=== PATIENT | female | born 1970 | race Caucasian/White ===

== ENCOUNTER 2018-08-19 11:24 | Emergency (ER) | payer OTHER, SELFPAY ==
--- NOTE | 2018-08-19 12:37 | RAD REPORT ---
EXAM DESCRIPTION: CT - Head Brain Wo Cont - 08/19/2018 12:27 pm CLINICAL HISTORY: NUMBNESS COMPARISON: No comparisons TECHNIQUE: All CT scans are performed using dose optimization technique as appropriate and may inclu de automated exposure control or mA/KV adjustment according to patient size. FINDINGS: No intracranial hemorrhage, hydrocephalus or extra-axial fluid collection.No areas of brai n edema or evidence of midline shift. Mild mucoperiosteal thickening affects the right anterior ethmoid air cells. The paranasal sinuses an d mastoids are clear. The calvarium is intact. IMPRESSION: No acute intracranial abnormality.
--- NOTE | 2018-08-19 13:02 | EDPHYS ---
Physician Documentation [facility] Name: Ladi Matta Age: 47 yrs Sex: Female : 1970 Arrival Date: 08/19/2018 Time: 11:29 Bed 20 Private MD: None, None ED Physician Forrest Hendrickson HPI: 08/19 11:54 This 47 yrs old Female presents to ER via Ambulatory with complaints of rn Numbness Of Arm. 11:54 The patient or guardian complains of tingling. The complaints affect the entire arm. rn Onset: The symptoms/episode began/occurred 1 week(s) ago. Modifying factors: The symptoms are alleviated by nothing. the symptoms are aggravated by nothing. Severity of symptoms: At their worst the symptoms were mild, in the emergency department the symptoms have improved. The patient has not experienced similar symptoms in the past. Reports 1 week of intermittent LUE tingling/numbness, nothing makes it worse or better, no fever, no trauma, no chest pain/sob, no abd pain. . 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 - Social history:: Smoking status: Patient/guardian denies using tobacco. - Ebola Screening: : No symptoms or risks identified at this time. - Family history:: not pertinent. - Hospitalizations: : No recent hospitalization is reported. ROS: 11:54 Constitutional: Negative for fever, chills, and weight loss, Eyes: Negative for injury, rn pain, redness, and discharge, Neck: Negative for injury, pain, and swelling, Cardiovascular: Negative for chest pain, palpitations, and edema, Respiratory: Negative for shortness of breath, cough, wheezing, and pleuritic chest pain, Abdomen/GI: Negative for abdominal pain, nausea, vomiting, diarrhea, and constipation, MS/Extremity: Negative for injury and deformity, Skin: Negative for injury, rash, and discoloration, Neuro: Negative for headache, weakness, and seizure. Exam: 11:54 Constitutional: This is a well developed, well nourished patient who is awake, alert, rn appears anxious Head/Face: Normocephalic, atraumatic. Eyes: Pupils equal round and reactive to light, extra-ocular motions intact. Neck: Trachea midline, no thyromegaly or masses palpated, and no cervical lymphadenopathy. Supple, full range of motion without nuchal rigidity, or vertebral point tenderness. No Meningismus. Cardiovascular: Regular rate and rhythm with a normal S1 and S2. No gallops, murmurs, or rubs. Normal PMI, no JVD. No pulse deficits. Respiratory: Lungs have equal breath sounds bilaterally, clear to auscultation and percussion. No rales, rhonchi or wheezes noted. No increased work of breathing, no retractions or nasal flaring. Abdomen/GI: soft, non-tender MS/ Extremity: Pulses equal, no cyanosis. Neurovascular intact. Full, normal range of motion. Equal circumference. Neuro: Awake and alert, GCS 15, oriented to person, place, time, and situation. Cranial nerves II-XII grossly intact. Motor strength 5/5 in all extremities. + decreased sensation to touch LUE, but present. Cerebellar exam normal. Normal gait. Vital Signs: 11:41 BP 139 / 97; Pulse 84; Resp 16 S; Temp 98.0(TE); Pulse Ox 97% on R/A; Weight 83.91 kg aa5 (R); Height 5 ft. 7 in. (170.18 cm) (R); Pain 0/10; 13:10 BP 137 / 91; Pulse 81; Resp 16; Pulse Ox 99% on R/A; aj 11:41 Body Mass Index 28.97 (83.91 kg, 170.18 cm) aa5 MDM: 11:43 Patient medically screened. rn 12:58 Differential diagnosis: radiculopathy, anxiety, referred symptoms. Data reviewed: vital rn signs, nurses notes, radiologic studies, CT scan, and as a result, I will discharge patient. Counseling: I had a detailed discussion with the patient and/or guardian regarding: the historical points, exam findings, and any diagnostic results supporting the discharge/admit diagnosis, radiology results, the need for outpatient follow up, to return to the emergency department if symptoms worsen or persist or if there are any questions or concerns that arise at home. Special discussion: I discussed with the patient/guardian in detail that at this point there is no indication for admission to the hospital. It is understood, however, that if the symptoms persist or worsen the patient needs to return immediately for re-evaluation. Based on the history and exam findings, there is no indication for further emergent testing or inpatient evaluation. I discussed with the patient/guardian the need to see the primary care provider for further evaluation of the symptoms. ED course: CT head negative, ECG without ischemia, will dc home as most likely radiculopathy given intermittent unilateral symptoms to isolated extremity. . 08/19 11:54 Order name: CT Head Brain wo Cont; Complete Time: 12:39 rn 08/19 11:54 Order name: EKG; Complete Time: 11:54 rn 08/19 11:54 Order name: EKG - Nurse/Tech; Complete Time: 13:09 rn Administered Medications: No medications were administered Disposition: 08/19/18 13:01 Discharged to Home. Impression: Paresthesia of skin, Radiculopathy. - Condition is Stable. - Discharge Instructions: Cervical Radiculopathy, Paresthesia, Peripheral Neuropathy. - Medication Reconciliation Form, Thank You Letter, Antibiotic Education, Prescription Opioid Use form. - Follow up: Private Physician; When: As needed; Reason: Recheck today's complaints, Re-evaluation by your physician. - Problem is new. - Symptoms have improved. Signatures: Dispatcher [employer] Ibis Santo RN Forrest Paula MD MD rn Calderon, Audri, RN RN aa5 Corrections: (The following items were deleted from the chart) 13:12 13:01 08/19/2018 13:01 Discharged to Home. Impression: Paresthesia of skin; aj Radiculopathy. Condition is Stable. Forms are Medication Reconciliation Form, Thank You Letter, Antibiotic Education, Prescription Opioid Use. Follow up: Private Physician; When: As needed; Reason: Recheck today's complaints, Re-evaluation by your physician. Problem is new. Symptoms have improved. rn
--- NOTE | 2018-08-19 13:02 | ER ---
Nurse's Notes [facility] Name: Ladi Matta Age: 47 yrs Sex: Female : 1970 Arrival Date: 08/19/2018 Time: 11:29 Bed 20 Private MD: None, None Diagnosis: Paresthesia of skin;Radiculopathy Presentation: 08/19 11:39 Presenting complaint: Patient states: intermittent left arm numbness and tingling that aa5 began 1 week ago. Pt states "over the last 6 or 7 months I get a pain between my shoulder blades every once in a while". Transition of care: patient was not received from another setting of care. Onset of symptoms was July 2018. Risk Assessment: Do you want to hurt yourself or someone else? Patient reports no desire to harm self or others. Initial Sepsis Screen: Does the patient meet any 2 criteria? No. Patient's initial sepsis screen is negative. Does the patient have a suspected source of infection? No. Patient's initial sepsis screen is negative. Care prior to arrival: None. 11:39 Method Of Arrival: Ambulatory aa5 11:39 Acuity: IRAM 3 aa5 [employer]CHER [employer]: 11:41 LMP 07/21/2018 aa5 Historical: - Allergies: 11:42 No Known Allergies; aa5 - PMHx: 11:42 None; aa5 - PSHx: 11:42 Knee surgery; aa5 - Immunization history:: Adult Immunizations unknown. - Social history:: Smoking status: Patient/guardian denies using tobacco. - Ebola Screening: : No symptoms or risks identified at this time. - Family history:: not pertinent. - Hospitalizations: : No recent hospitalization is reported. Screenin:57 Abuse screen: Denies threats or abuse. Denies injuries from another. Nutritional aj screening: No deficits noted. Tuberculosis screening: No symptoms or risk factors identified. Fall Risk None identified. Assessment: 11:57 General: Appears in no apparent distress. comfortable, Behavior is calm, cooperative, aj appropriate for age. Pain: Denies pain. Neuro: Level of Consciousness is awake, alert, obeys commands, Oriented to person, place, time, situation, Appropriate for age Firmware Manager are equal bilaterally Moves all extremities. Full function Gait is steady, Speech is normal, Facial symmetry appears normal, Pupils are PERRLA, Numbness in left bicep, left antecubital area, dorsal aspect of left forearm, left tricep, left elbow and palmar aspect of left forearm. Respiratory: Airway is patent Respiratory effort is even, unlabored, Respiratory pattern is regular, symmetrical. Derm: Skin is intact, is healthy with good turgor, Skin is pink, warm \\T\\ dry. normal. 13:10 Reassessment: Patient appears in no apparent distress at this time. No changes from aj previously documented assessment. Patient and/or family updated on plan of care and expected duration. Pain level reassessed. Patient is alert, oriented x 3, equal unlabored respirations, skin warm/dry/pink. Patient denies pain at this time. Vital Signs: 11:41 BP 139 / 97; Pulse 84; Resp 16 S; Temp 98.0(TE); Pulse Ox 97% on R/A; Weight 83.91 kg aa5 (R); Height 5 ft. 7 in. (170.18 cm) (R); Pain 0/10; 13:10 BP 137 / 91; Pulse 81; Resp 16; Pulse Ox 99% on R/A; aj 11:41 Body Mass Index 28.97 (83.91 kg, 170.18 cm) aa5 ED Course: 11:29 Patient arrived in ED. mr 11:29 None, None is Private Physician. mr 11:40 Triage completed. aa5 11:40 Forrest Hendrickson MD is Attending Physician. rn 11:40 Arm band placed on. aa5 11:56 Ibis Nolan, RN is Primary Nurse. aj 11:57 Patient has correct armband on for positive identification. aj 11:57 No provider procedures requiring assistance completed. aj 12:15 CT completed. Patient tolerated procedure well. Patient moved to CT via wheelchair. jg6 12:27 CT Head Brain wo Cont In Process Unspecified. EDMS 13:08 EKG done, by fresh foods technician. reviewed by Forrest Hendrickson MD. at1 13:10 Patient did not have IV access during this emergency room visit. aj Administered Medications: No medications were administered Outcome: 13:01 Discharge ordered by . rn 13:10 Discharged to home ambulatory. aj 13:10 Condition: good 13:10 Discharge instructions given to patient, Instructed on discharge instructions, follow up and referral plans. Demonstrated understanding of instructions, follow-up care. 13:12 Patient left the ED. aj Signatures: Dispatcher [employer] EDIbis Carter RN RN aj Rhea Estrada mr Forrest Hendrickson MD MD rn Calderon, Audri, RN RN aa5 Ibis Reid, gear tester EKG Tat1 [email or web address] [id number] Corrections: (The following items were deleted from the chart) 11:41 11:39 Presenting complaint: Patient states: intermittent left arm numbness and tingling aa5 that began 1 week ago. aa5 11:43 11:41 BP 139 / 97; Pulse 84bpm; Resp 16bpm; Spontaneous; Pulse Ox 97% RA; Temp 98.0F aa5 Temporal; aa5
--- NOTE | 2018-08-19 16:46 | EKG ---
Test Date: 2018-08-19 Test Time: 12:57:30 Building Repair Maintenance Supervisor: KYLEE MEASUREMENT RESULTS: Intervals: Rate: 62 ME: 144 QRSD: 88 QT: 414 QTc: 420 [place]: P: 72 ME: 144 QRS: 8 T: 40 INTERPRETIVE STATEMENTS: Normal sinus rhythm Cannot rule out Inferior infarct, age undetermined Abnormal ECG No previous ECG available for comparison Electronically Signed On 08-19-18 16:44:29 CDT by Flo Sommers
== END 2018-08-19 13:12 | disposition home or self-care (01) ==
LOC: ER 11:24
DX: R20.2 Paresthesia of skin (principal); M54.12 Radiculopathy, cervical region
CPT/HCPCS: 70450; 93005; 99284

== ENCOUNTER 2023-05-29 13:22 | Emergency (ER) | payer SELFPAY ==
--- OUTSIDE RECORDS SUMMARY | 2023-05-29 13:27 | XMS REPORT | Continuity of Care Document ---
:1970 Author Organization [facility] t Address [address] [facility] [place] [address] Care Team Providers Name Role Phone BEBO AQUINO Primary Care Physician Unavailable BALBINA CARVER Attending Clinician Unavailable Blu Richardson NP Attending Clinician Wen WHBalbina ALVARADO Attending Clinician [phone] Leif Valle Attending Clinician Unavailable LEIF GRAYSON Attending Clinician Unavailable PAULY DEL RIO Attending Clinician Unavailable Doctor Unassigned, [place] Attending Clinician Unavailable BEBO AQUINO Attending Clinician Unavailable Wesley Attending Clinician Unavailable FRANK MARTINEZ Attending Clinician Unavailable Pauly Del Rio CNM Attending Clinician LAB90 Attending Clinician Unavailable Pcp, Patient Does Not Have A Attending Clinician [phone] BLU RICHARDSON Attending Clinician Unavailable Wesley Admitting Clinician Unavailable Payers Payer Name Policy Type Policy Number Effective Date Expiration Date S ource Problems Condition Condition Condition Status Onset Resolution Last Treating Co mments Source Name Details Category Date Date Treatment Clinician Date Encounter Encounter Disease Active Uni vers for for 06-18 [place] [facility] Branch malignant malignant neoplasm neoplasm of breast of breast Tobacco Tobacco Disease Active Univers use use 06-18 ity of disorder disorder 00:00: [address] Branch Screen for Screen for Disease Active U nivers STD STD 3-03 it[place] of (sexually (sexually [place] transmitte transmitte 00 Me dical d disease) d disease) Br anch Mammogram Mammogram Disease Active Overview: Univers abnormal- abnormal- 12-12 Formattin i ty of left left 00:00: g of this [place] 00 note Medical might be Branch different from the original. 08/2015, Spot compressi on ultrasoun d recommend ed. Essential Essential Disease Active 2014-11 Uni vers hypertensi hypertensi [place] of [place] benign [place] Contracept Contracept Disease Active 2014-11 U srinivasan jean jean ity of management management [place] Cervical Cervical Disease Active 2014-11 Overview: Un juni high risk high risk Formattin i ty of human human 00:00: g of this [place] papillomav papillomav 00 note Me dical irus (HPV) irus (HPV) might be Branch DNA test DNA test different positive positive from the original. Pap negative; cotesting at 1 year (06/2016) Overweight Overweight Disease Active Overview : Univers 8-18 Formattin ity of 00:00: g of this [place] 00 note Medical might be Branch different from the original. 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 ICD10 Diagnosis Term Cle[employer] Utility No known No known Disease Kelse y active active Seybold problems problems - Externa l Allergies, Adverse Reactions, Alerts Allergy Allergy Status Severity Reaction(s) Onset Inactive Treating Comm ents Source Name Type Date Date Clinician NO KNOWN Drug Active Univers ALLERGIE Class ity of S [facility] Social History Social Habit Start Date Stop Date Quantity Comments Source History of tobacco Vivi Seybold - use External History [facility] University o f Alcohol Frequency [place] [facility] History [facility] University o f Alcohol Std Drinks [place] [facility] History [facility] Union o f Alcohol Binge [place] [facility] Gender identity Universit y of [facility] Sexual orientation Univer sity of [facility] Exposure to 2023-01-11 2023-01-21 Not sure [facility] SARS-CoV-2 (event) 00:00:00 13:02:00 [facility] Alcohol intake 2022-09-25 2022-09-25 Lifetime Vivi Khan bold - 00:00:00 00:00:00 non-drinker External (finding) Tobacco use and 2022-08-28 2022-08-28 Smokeless tobacco Ke lsey Seybold - exposure 00:00:00 00:00:00 non-user External History of Social 2022-08-27 2022-08-27 Univers ity of function 00:00:00 00:00:00 [facility] Cigarettes smoked 2022-05-14 2022-05-14 Univers ity of current (pack per 00:00:00 00:00:00 [facility] ) - Reported [place] Cigarette 2022-05-14 2022-05-14 University of pack-years 00:00:00 00:00:00 [facility] Alcohol Comment 2015-07-03 2015-07-03 occasional use Unive rsity of 00:00:00 00:00:00 [facility] Sex Assigned At [birth year] Vivi villalpandoold - 00:00:00 00:00:00 External Smoking Status Start Date Stop Date Source Smokes tobacco daily 2022-08-28 00:00:00 Vivi Banegas - External Ex-smoker 2022-05-14 00:00:00 2022-05-14 00:00:00 Universi ty of [facility] Medications Ordered Filled Start Stop Current Ordering Indication Dosage Frequency Signature Comments Components Source Medication Medication Date Date Medication? Clinician (SIG) Name Name metroNIDAZO 2022- Yes [id number] 1{appli Insert 1 Univers LE 0.75 % 05-18 cator} Applicator i ty of (37.5mg/5 00:00: 04:59 into [place] gram) 00 :00 vagina 2 Medical vaginal gel (two) Branch times per week for 8 days. For 3-6 months metroNIDAZO 2022- Yes [id number] 1{appli Insert 1 Univers LE 0.75 % 05-18 cator} Applicator i ty of (37.5mg/5 00:00: 04:59 into [place] gram) 00 :00 vagina 2 Medical vaginal gel (two) Branch times per week for 8 days. For 3-6 months metroNIDAZO 2022- Yes [id number] 1{appli Insert 1 Univers LE 0.75 % 05-18 cator} Applicator i ty of (37.5mg/5 00:00: 04:59 into [place] gram) 00 :00 vagina 2 Medical vaginal gel (two) Branch times per week for 8 days. For 3-6 months metroNIDAZO 2022- Yes [id number] 1{appli Insert 1 Univers LE 0.75 % 05-18 cator} Applicator i ty of (37.5mg/5 00:00: 04:59 into [place] gram) 00 :00 vagina 2 Medical vaginal gel (two) Branch times per week for 8 days. For 3-6 months metroNIDAZO 2022- Yes [id number] 1{appli Insert 1 Univers LE 0.75 % 05-18 cator} Applicator i ty of (37.5mg/5 00:00: 04:59 into [place] gram) 00 :00 vagina 2 Medical vaginal gel (two) Branch times per week for 8 days. For 3-6 months ibuprofen 2022-2022- No 200mg Take 200 Un juni 200 mg 6-30 06-30 mg by ity of tablet 08:37: 00:00 mouth [place] 48 :00 every 6 Medical (six) Branch hours as needed. ibuprofen 2022-0 2022- No 200mg Take 200 Un juni 200 mg 6-30 06-30 mg by ity of tablet 08:37: 00:00 mouth [place] 48 :00 every 6 Medical (six) Branch hours as needed. ibuprofen 2022-0 2022- No 200mg Take 200 Un juni 200 mg 6-30 06-30 mg by ity of tablet 08:37: 00:00 mouth [place] 48 :00 every 6 Medical (six) Branch hours as needed. ibuprofen 2022-0 2022- No 200mg Take 200 Un juni 200 mg 6-30 06-30 mg by ity of tablet 08:37: 00:00 mouth [place] 48 :00 every 6 Medical (six) Branch hours as needed. Multivitami 2022-0 2023- No Take by Un juni ns with 6-30 06-30 mouth. ity of Fluoride 08:37: 00:00 [place] (MULTI-TANA 42 :00 Medical MIN ORAL) Branch Multivitami 3-0 3- No Take by Un juni ns with 6-30 06-30 mouth. ity of Fluoride 08:37: 00:00 [place] (MULTI-TANA 42 :00 Medical MIN ORAL) Branch Multivitami 3-0 3- No Take by Un juni ns with 6-30 06-30 mouth. ity of Fluoride 08:37: 00:00 [place] (MULTI-TANA 42 :00 Medical MIN ORAL) Branch Multivitami 3-0 3- No Take by Un juni ns with 6-30 06-30 mouth. ity of Fluoride 08:37: 00:00 [place] (MULTI-TANA 42 :00 Medical MIN ORAL) Branch metoprolol 2023-0 Yes 25mg Take 1 Unive rs tartrate 25 3-01 tablet by ity of mg tablet 00:00: [place] 00 the Medical morning Branch and 1 tablet in the evening. metoprolol 2023-0 Yes 25mg Take 1 Unive rs tartrate 25 3-01 tablet by ity of mg tablet 00:00: mouth [place] 00 the Medical morning Branch and 1 tablet in the evening. metoprolol 2023-0 Yes 25mg Take 1 Unive rs tartrate 25 3-01 tablet by ity of mg tablet 00:00: mouth [place] 00 the Medical morning Branch and 1 tablet in the evening. metoprolol 2023-0 Yes 25mg Take 1 Unive rs tartrate 25 3-01 tablet by ity of mg tablet 00:00: mouth [place] 00 the Medical morning Branch and 1 tablet in the evening. metoprolol 2023-0 Yes 25mg Take 1 Unive rs tartrate 25 3-01 tablet by ity of mg tablet 00:00: mouth [place] 00 the Medical morning Branch and 1 tablet in the evening. metoprolol 2023-0 Yes 25mg Take 1 Unive rs tartrate 25 3-01 tablet by ity of mg tablet 00:00: mouth [place] 00 the Medical morning Branch and 1 tablet in the evening. metoprolol 2023-0 Yes 25mg Take 1 Unive rs tartrate 25 3-01 tablet by ity of mg tablet 00:00: mouth [place] 00 the Medical morning Branch and 1 tablet in the evening. metoprolol 2023-0 Yes 25mg Take 1 Unive rs tartrate 25 3-01 tablet by ity of mg tablet 00:00: mouth [place] 00 the Medical morning Branch and 1 tablet in the evening. metoprolol 2023-0 Yes 25mg Take 1 Unive rs tartrate 25 3-01 tablet by ity of mg tablet 00:00: mouth [place] 00 the Medical morning Branch and 1 tablet in the evening. metoprolol 2023-0 Yes 25mg Take 1 Unive rs tartrate 25 3-01 tablet by ity of mg tablet 00:00: mouth [place] 00 the Medical morning Branch and 1 tablet in the evening. metoprolol 2023-0 Yes 25mg Take 1 Unive rs tartrate 25 3-01 tablet by ity of mg tablet 00:00: mouth [place] 00 the Medical morning Branch and 1 tablet in the evening. metoprolol 2023-0 Yes 25mg Take 1 Unive rs tartrate 25 3-01 tablet by ity of mg tablet 00:00: mouth [place] 00 the Medical morning Branch and 1 tablet in the evening. metoprolol 2023-0 Yes 25mg Take 1 Unive rs tartrate 25 3-01 tablet by ity of mg tablet 00:00: mouth [place] 00 the Medical morning Branch and 1 tablet in the evening. metoprolol 2023-0 Yes 25mg Take 1 Unive rs tartrate 25 3-01 tablet by ity of mg tablet 00:00: mouth [place] 00 the Medical morning Branch and 1 tablet in the evening. metoprolol 2023-0 Yes 25mg Take 1 Unive rs tartrate 25 3-01 tablet by ity of mg tablet 00:00: mouth [place] 00 the Medical morning Branch and 1 tablet in the evening. metoprolol 2023-0 Yes 25mg Take 1 Unive rs tartrate 25 3-01 tablet by ity of mg tablet 00:00: mouth [place] 00 the Medical morning Branch and 1 tablet in the evening. metoprolol 2023-0 Yes 25mg Take 1 Unive rs tartrate 25 3-01 tablet by ity of mg tablet 00:00: mouth in [facility] 00 the Medical morning Branch and 1 tablet in the evening. losartan 2023-0 Yes 100mg Take 1 Univer s 100 mg 2-27 tablet by ity of tablet 00:00: mouth in [place] 00 the Medical morning. Branch losartan 2023-0 Yes 100mg Take 1 Univer s 100 mg 2-27 tablet by ity of tablet 00:00: mouth in [place] 00 the Medical morning. Branch losartan 2023-0 Yes 100mg Take 1 Univer s 100 mg 2-27 tablet by ity of tablet 00:00: mouth in [place] 00 the Medical morning. Branch losartan 2023-0 Yes 100mg Take 1 Univer s 100 mg 2-27 tablet by ity of tablet 00:00: mouth in [place] 00 the Medical morning. Branch losartan 2023-0 Yes 100mg Take 1 Univer s 100 mg 2-27 tablet by ity of tablet 00:00: mouth in [place] 00 the Medical morning. Branch losartan 2023-0 Yes 100mg Take 1 Univer s 100 mg 2-27 tablet by ity of tablet 00:00: mouth in [place] the Medical morning. Branch losartan 2023-0 Yes 100mg Take 1 Univer s 100 mg 2-27 tablet by ity of tablet 00:00: mouth in [place] the Medical morning. Branch losartan 2023-0 Yes 100mg Take 1 Univer s 100 mg 2-27 tablet by ity of tablet 00:00: mouth in [place] 00 the Medical morning. Branch losartan 2023-0 Yes 100mg Take 1 Univer s 100 mg 2-27 tablet by ity of tablet 00:00: mouth in [place] 00 the Medical morning. Branch losartan 2023-0 Yes 100mg Take 1 Univer s 100 mg 2-27 tablet by ity of tablet 00:00: mouth in [place] 00 the Medical morning. Branch losartan 2023-0 Yes 100mg Take 1 Univer s 100 mg 2-27 tablet by ity of tablet 00:00: mouth in [place] 00 the Medical morning. Branch losartan 2023-0 Yes 100mg Take 1 Univer s 100 mg 2-27 tablet by ity of tablet 00:00: mouth in [place] 00 the Medical morning. Branch losartan 2023-0 Yes 100mg Take 1 Univer s 100 mg 2-27 tablet by ity of tablet 00:00: mouth in [place] 00 the morning. Branch losartan Yes 100mg Take 1 Univer s 100 mg 2-27 tablet by ity of tablet 00:00: mouth in [place] 00 the morning. Branch losartan 0 Yes 100mg Take 1 Univer s 100 mg 2-27 tablet by ity of tablet 00:00: mouth in [place] 00 the morning. Branch losartan 0 Yes 100mg Take 1 Univer s 100 mg 2-27 tablet by ity of tablet 00:00: mouth in [place] 00 the morning. Branch losartan 0 Yes 100mg Take 1 Univer s 100 mg 2-27 tablet by ity of tablet 00:00: mouth in [place] 00 the morning. Branch Losartan 2021-11 Yes [id number] 100mg Take 1 Ke lsey Potassium 1-10 tablet Seybold 100 MG oral 00:00: (100 mg - Tablet 00 total) by Externa mouth l daily Losartan 2021-11- No [id number] 100mg Take 1 K elsey Potassium 1-09 11-10 tablet Seybold 100 MG oral 00:00: 00:00 (100 mg - Tablet 00 :00 total) by Externa mouth l daily Metoprolol 2021-11 Yes [id number] 25mg Take 1 K elsey Tartrate 25 1-08 tablet (25 Se ybold MG oral 00:00: mg total) - Tablet 00 by mouth 2 Externa times l daily metroNIDAZO 2021-11- No [id number] 500mg Take 1 Univers LE 500 mg 0-14 10-22 tablet by ity of tablet 00:00: 04:59 mouth in [place] 00 :00 the morning Branch and 1 tablet in the evening. Do all this for 7 days. metroNIDAZO 2021-11- No [id number] 500mg Take 1 Univers LE 500 mg 0-14 10-22 tablet by ity of tablet 00:00: 04:59 mouth in [place] 00 :00 the morning Branch and 1 tablet in the evening. Do all this for 7 days. metroNIDAZO 2021-11- No [id number] 500mg Take 1 Univers LE 500 mg 0-14 10-22 tablet by ity of tablet 00:00: 04:59 mouth in [place] 00 :00 the Medical morning Branch and 1 tablet in the evening. Do all this for 7 days. metroNIDAZO 2021-11- No [id number] 500mg Take 1 Univers LE 500 mg 0-14 10-22 tablet by ity of tablet 00:00: 04:59 mouth in [place] 00 :00 the Medical morning Branch and 1 tablet in the evening. Do all this for 7 days. Bupropion 2021-11 Yes [id number] 150mg Take 1 K elsey HCL XL 150 0-13 tablet Seybold MG OR TB24 00:00: (150 mg - 00 total) by Externa mouth l daily clindamycin 0 Yes [id number] 1{appli Insert 1 Univers 2 % cream 06-16 cator} Applicator it y of 00:00: into [place] 00 vagina at Medical bedtime. Branch clindamycin 0 Yes [id number] 1{appli Insert 1 Univers 2 % cream 06-16 cator} Applicator it y of 00:00: into [place] 00 vagina at Medical bedtime. Branch clindamycin Yes [id number] 1{appli Insert 1 Univers 2 % cream 06-16 cator} Applicator it y of 00:00: into [place] 00 vagina at Medical bedtime. Branch clindamycin Yes [id number] 1{appli Insert 1 Univers 2 % cream 06-16 cator} Applicator it y of 00:00: into [place] 00 vagina at Medical bedtime. Branch clindamycin 0 Yes [id number] 1{appli Insert 1 Univers 2 % cream 06-16 cator} Applicator it y of 00:00: into [place] 00 vagina at Medical bedtime. Branch clindamycin 0 Yes [id number] 1{appli Insert 1 Univers 2 % cream 06-16 cator} Applicator it y of 00:00: into [place] 00 vagina at Medical bedtime. Branch clindamycin 0 Yes [id number] 1{appli Insert 1 Univers 2 % cream 06-16 cator} Applicator it y of 00:00: into [place] 00 vagina at Medical bedtime. Branch clindamycin 0 Yes [id number] 1{appli Insert 1 Univers 2 % cream 06-16 cator} Applicator it y of 00:00: into [place] 00 vagina at Medical bedtime. Branch clindamycin 2021-0 Yes [id number] 1{appli Insert 1 Univers 2 % cream 06-16 cator} Applicator it y of 00:00: into [place] 00 vagina at Medical bedtime. Branch clindamycin 2021-0 Yes [id number] 1{appli Insert 1 Univers 2 % cream 06-16 cator} Applicator it y of 00:00: into [place] vagina at Medical bedtime. Branch clindamycin 2021-0 Yes [id number] 1{appli Insert 1 Univers 2 % cream 06-16 cator} Applicator it y of 00:00: into [place] 00 vagina at Medical bedtime. Branch clindamycin 2021-0 Yes [id number] 1{appli Insert 1 Univers 2 % cream 06-16 cator} Applicator it y of 00:00: into [place] 00 vagina at Medical bedtime. Branch clindamycin 2021-0 Yes [id number] 1{appli Insert 1 Univers 2 % cream 06-16 cator} Applicator it y of 00:00: into [place] vagina at Medical bedtime. Branch clindamycin 2021-0 Yes [id number] 1{appli Insert 1 Univers 2 % cream 06-16 cator} Applicator it y of 00:00: into [place] 00 vagina at Medical bedtime. Branch clindamycin 2021-0 Yes [id number] 1{appli Insert 1 Univers 2 % cream 06-16 cator} Applicator it y of 00:00: into [place] 00 vagina at Medical bedtime. Branch clindamycin 2021-0 Yes [id number] 1{appli Insert 1 Univers 2 % cream 06-16 cator} Applicator it y of 00:00: into [place] vagina at Medical bedtime. Branch clindamycin 2021-0 Yes [id number] 1{appli Insert 1 Univers 2 % cream 06-16 cator} Applicator it y of 00:00: into [place] 00 vagina at Medical bedtime. Branch clindamycin 2021-0 Yes [id number] 1{appli Insert 1 Univers 2 % cream 06-16 cator} Applicator it y of 00:00: into [place] 00 vagina at Medical bedtime. Branch clindamycin 2021-0 Yes [id number] 1{appli Insert 1 Univers 2 % cream 06-16 cator} Applicator it y of 00:00: into [place] vagina at Medical bedtime. Branch clindamycin 2021-0 Yes [id number] 1{appli Insert 1 Univers 2 % cream 06-16 cator} Applicator it y of 00:00: into [place] vagina at Medical bedtime. Branch clindamycin 2021-0 Yes [id number] 1{appli Insert 1 Univers 2 % cream 06-16 cator} Applicator it y of 00:00: into [place] vagina at Medical bedtime. Branch clindamycin 2021-0 Yes [id number] 1{appli Insert 1 Univers 2 % cream 06-16 cator} Applicator it y of 00:00: into [place] vagina at Medical bedtime. Branch clindamycin 2021-0 Yes [id number] 1{appli Insert 1 Univers 2 % cream 06-16 cator} Applicator it y of 00:00: into [place] vagina at Medical bedtime. Branch clindamycin 2021-0 Yes [id number] 1{appli Insert 1 Univers 2 % cream 06-16 cator} Applicator it y of 00:00: into [place] vagina at Medical bedtime. Branch clindamycin 2021-0 Yes [id number] 1{appli Insert 1 Univers 2 % cream 06-16 cator} Applicator it y of 00:00: into [place] vagina at Medical bedtime. Branch clindamycin 2021-0 Yes [id number] 1{appli Insert 1 Univers 2 % cream 06-16 cator} Applicator it y of 00:00: into [place] vagina at Medical bedtime. Branch clindamycin 2021-0 Yes [id number] 1{appli Insert 1 Univers 2 % cream 06-16 cator} Applicator it y of 00:00: into [place] vagina at Medical bedtime. Branch clindamycin 2021-0 Yes [id number] 1{appli Insert 1 Univers 2 % cream 06-16 cator} Applicator it y of 00:00: into [place] vagina at Medical bedtime. Branch clindamycin 2021-0 Yes [id number] 1{appli Insert 1 Univers 2 % cream - cator} Applicator it y of 00:00: into [place] vagina at Medical bedtime. Branch clindamycin 2021-0 Yes [id number] 1{appli Insert 1 Univers 2 % cream - cator} Applicator it y of 00:00: into [place] 00 vagina at Medical bedtime. Branch clindamycin 2021-0 Yes [id number] 1{appli Insert 1 Univers 2 % cream - cator} Applicator it y of 00:00: into [place] vagina at Medical bedtime. Branch clindamycin 2021-0 Yes [id number] 1{appli Insert 1 Univers 2 % cream - cator} Applicator it y of 00:00: into [place] vagina at Medical bedtime. Branch clindamycin 2021-0 Yes [id number] 1{appli Insert 1 Univers 2 % cream - cator} Applicator it y of 00:00: into [place] 00 vagina at Medical bedtime. Branch clindamycin 2021-0 Yes [id number] 1{appli Insert 1 Univers 2 % cream 06-16 cator} Applicator it y of 00:00: into [place] vagina at Medical bedtime. Branch clindamycin 2021-0 Yes [id number] 1{appli Insert 1 Univers 2 % cream - cator} Applicator it y of 00:00: into [place] vagina at Medical bedtime. Branch clindamycin 2021-0 Yes [id number] 1{appli Insert 1 Univers 2 % cream - cator} Applicator it y of 00:00: into [place] vagina at Medical bedtime. Branch triamcinolo 2021-0 Yes [id number] Apply to Univers ne 7-27 area(s) 2 ity of acetonide 00:00: (two) [place] 0.1 % cream 00 times Medical daily. Branch triamcinolo 2021-0 Yes [id number] Apply to Univers ne 7-27 area(s) 2 ity of acetonide 00:00: (two) [place] 0.1 % cream 00 times Medical daily. Branch triamcinolo 2-0 Yes [id number] Apply to Univers ne 7-27 area(s) 2 ity of acetonide 00:00: (two) [place] 0.1 % cream 00 times Medical daily. Branch triamcinolo 2-0 Yes [id number] Apply to Univers ne 7-27 area(s) 2 ity of acetonide 00:00: (two) [place] 0.1 % cream 00 times Medical daily. Branch triamcinolo 2022-0 Yes [id number] Apply to Univers ne 7-27 area(s) 2 ity of acetonide 00:00: (two) [place] 0.1 % cream 00 times Medical daily. Branch triamcinolo 2022-0 Yes [id number] Apply to Univers ne 7-27 area(s) 2 ity of acetonide 00:00: (two) [place] 0.1 % cream 00 times Medical daily. Branch triamcinolo 2022-0 Yes [id number] Apply to Univers ne 7-27 area(s) 2 ity of acetonide 00:00: (two) [place] 0.1 % cream 00 times Medical daily. Branch triamcinolo 2022-0 Yes [id number] Apply to Univers ne 7-27 area(s) 2 ity of acetonide 00:00: (two) [place] 0.1 % cream 00 times Medical daily. Branch triamcinolo 2022-0 Yes [id number] Apply to Univers ne 7-27 area(s) 2 ity of acetonide 00:00: (two) [place] 0.1 % cream 00 times Medical daily. Branch triamcinolo 2022-0 Yes [id number] Apply to Univers ne 7-27 area(s) 2 ity of acetonide 00:00: (two) [place] 0.1 % cream 00 times Medical daily. Branch triamcinolo 2022-0 Yes [id number] Apply to Univers ne 7-27 area(s) 2 ity of acetonide 00:00: (two) [place] 0.1 % cream 00 times Medical daily. Branch triamcinolo 2022-0 Yes [id number] Apply to Univers ne 7-27 area(s) 2 ity of acetonide 00:00: (two) [place] 0.1 % cream 00 times Medical daily. Branch triamcinolo 2022-0 Yes [id number] Apply to Univers ne 7-27 area(s) 2 ity of acetonide 00:00: (two) [place] 0.1 % cream 00 times Medical daily. Branch triamcinolo 2022-0 Yes [id number] Apply to Univers ne 7-27 area(s) 2 ity of acetonide 00:00: (two) [place] 0.1 % cream 00 times Medical daily. Branch triamcinolo 2022-0 Yes [id number] Apply to Univers ne 7-27 area(s) 2 ity of acetonide 00:00: (two) [place] 0.1 % cream 00 times Medical daily. Branch triamcinolo 2022-0 Yes [id number] Apply to Univers ne 7-27 area(s) 2 ity of acetonide 00:00: (two) [place] 0.1 % cream 00 times Medical daily. Branch triamcinolo 2022-0 Yes [id number] Apply to Univers ne 7-27 area(s) 2 ity of acetonide 00:00: (two) [place] 0.1 % cream 00 times Medical daily. Branch triamcinolo 2022-0 Yes [id number] Apply to Univers ne 7-27 area(s) 2 ity of acetonide 00:00: (two) [place] 0.1 % cream 00 times Medical daily. Branch triamcinolo 2022-0 Yes [id number] Apply to Univers ne 7-27 area(s) 2 ity of acetonide 00:00: (two) [place] 0.1 % cream 00 times Medical daily. Branch triamcinolo 2022-0 Yes [id number] Apply to Univers ne 7-27 area(s) 2 ity of acetonide 00:00: (two) [place] 0.1 % cream 00 times Medical daily. Branch triamcinolo 2022-0 Yes [id number] Apply to [facility] ne 7-27 area(s) 2 ity of acetonide 00:00: (two) [place] 0.1 % cream 00 times Medical daily. Branch triamcinolo 2022-0 Yes [id number] Apply to [facility] ne 7-27 area(s) 2 ity of acetonide 00:00: (two) [place] 0.1 % cream 00 times Medical daily. Branch triamcinolo 2022-0 Yes [id number] Apply to Univers ne 7-27 area(s) 2 ity of acetonide 00:00: (two) [place] 0.1 % cream 00 times Medical daily. Branch triamcinolo 2022-0 Yes [id number] Apply to Univers ne 7-27 area(s) 2 ity of acetonide 00:00: (two) [place] 0.1 % cream 00 times Medical daily. Branch triamcinolo 2022-0 Yes [id number] Apply to Univers ne 7-27 area(s) 2 ity of acetonide 00:00: (two) [place] 0.1 % cream 00 times Medical daily. Branch triamcinolo 2022-0 Yes [id number] Apply to Univers ne 7-27 area(s) 2 ity of acetonide 00:00: (two) [place] 0.1 % cream 00 times Medical daily. Branch triamcinolo 2022-0 Yes [id number] Apply to Univers ne 7-27 area(s) 2 ity of acetonide 00:00: (two) [place] 0.1 % cream 00 times Medical daily. Branch triamcinolo 2022-0 Yes [id number] Apply to Univers ne 7-27 area(s) 2 ity of acetonide 00:00: (two) [place] 0.1 % cream 00 times Medical daily. Branch triamcinolo 2022-0 Yes [id number] Apply to [facility] ne 7-27 area(s) 2 ity of acetonide 00:00: (two) [place] 0.1 % cream 00 times Medical daily. Branch triamcinolo 2022-0 Yes [id number] Apply to [facility] ne 7-27 area(s) 2 ity of acetonide 00:00: (two) [place] 0.1 % cream 00 times Medical daily. Branch triamcinolo 2022-0 Yes [id number] Apply to [facility] ne 7-27 area(s) 2 ity of acetonide 00:00: (two) [place] 0.1 % cream 00 times Medical daily. Branch triamcinolo 2022-0 Yes [id number] Apply to [facility] ne 7-27 area(s) 2 ity of acetonide 00:00: (two) [place] 0.1 % cream 00 times Medical daily. Branch triamcinolo 2022-0 Yes [id number] Apply to [facility] ne 7-27 area(s) 2 ity of acetonide 00:00: (two) [place] 0.1 % cream 00 times Medical daily. Branch triamcinolo 2022-0 Yes [id number] Apply to [facility] ne 7-27 area(s) 2 ity of acetonide 00:00: (two) [place] 0.1 % cream 00 times Medical daily. Branch triamcinolo 2022-0 Yes [id number] Apply to [facility] ne 7-27 area(s) 2 ity of acetonide 00:00: (two) [place] 0.1 % cream 00 times Medical daily. Branch triamcinolo 2021-0 Yes [id number] Apply to [facility] 727 area(s) 2 ity of acetonide 00:00: (two) [place] 0.1 % cream 00 times Medical daily. Branch triamcinolo 2021-0 Yes [id number] Apply to [facility] 727 area(s) 2 ity of acetonide 00:00: (two) [place] 0.1 % cream 00 times Medical daily. Branch metroNIDAZO 2021-0 2022- No [id number] 500mg Take 1 Univers LE 500 mg 05-30 tablet by ity of tablet 00:00: 04:59 mouth [place] 00 :00 every 12 Medical (twelve) Branch hours for 7 days. Multivitami 2021-0 Yes Take by Uni vers ns with 6-29 mouth. ity of Fluoride 13:37: [place] (MULTI-TANA 00 Medical MIN ORAL) Branch ibuprofen 2-0 Yes 200mg Take 200 Uni vers 200 mg 6-29 mg by ity of tablet 13:37: mouth [place] 00 every 6 Medical (six) Branch hours as needed. Multivitami 2021-0 Yes Take by Uni vers ns with 6-29 mouth. ity of Fluoride 13:37: [place] (MULTI-TANA 00 Medical MIN ORAL) Branch ibuprofen 2-0 Yes 200mg Take 200 Uni vers 200 mg 6-29 mg by ity of tablet 13:37: mouth [place] 00 every 6 Medical (six) Branch hours as needed. Multivitami 202-0 Yes Take by Uni vers ns with 6-29 mouth. ity of Fluoride 13:37: [place] (MULTI-TANA 00 Medical MIN ORAL) Branch ibuprofen 2-0 Yes 200mg Take 200 Uni vers 200 mg 6-29 mg by ity of tablet 13:37: mouth [place] 00 every 6 Medical (six) Branch hours as needed. Multivitami 2022-0 Yes Take by Uni vers ns with 6-29 mouth. ity of Fluoride 13:37: [place] (MULTI-TANA 00 Medical MIN ORAL) Branch ibuprofen 2022-0 Yes 200mg Take 200 Uni vers 200 mg 6-29 mg by ity of tablet 13:37: mouth [place] 00 every 6 Medical (six) Branch hours as needed. Multivitami 2022-0 Yes Take by Uni vers ns with 6-29 mouth. ity of Fluoride 13:37: [place] (MULTI-TANA 00 Medical MIN ORAL) Branch ibuprofen 2022-0 Yes 200mg Take 200 Uni vers 200 mg 6-29 mg by ity of tablet 13:37: mouth [place] 00 every 6 Medical (six) Branch hours as needed. Multivitami 2022-0 Yes Take by Uni vers ns with 6-29 mouth. ity of Fluoride 13:37: [place] (MULTI-TANA 00 Medical MIN ORAL) Branch ibuprofen 2022-0 Yes 200mg Take 200 Uni vers 200 mg 6-29 mg by ity of tablet 13:37: mouth [place] 00 every 6 Medical (six) Branch hours as needed. Multivitami 2022-0 Yes Take by Uni vers ns with 6-29 mouth. ity of Fluoride 13:37: [place] (MULTI-TANA 00 Medical MIN ORAL) Branch ibuprofen 2022-0 Yes 200mg Take 200 Uni vers 200 mg 6-29 mg by ity of tablet 13:37: mouth [place] 00 every 6 Medical (six) Branch hours as needed. Multivitami 2022-0 Yes Take by Uni vers ns with 6-29 mouth. ity of Fluoride 13:37: [place] (MULTI-TANA 00 Medical MIN ORAL) Branch ibuprofen 2022-0 Yes 200mg Take 200 Uni vers 200 mg 6-29 mg by ity of tablet 13:37: mouth [place] 00 every 6 Medical (six) Branch hours as needed. Multivitami 2022-0 Yes Take by Uni vers ns with 6-29 mouth. ity of Fluoride 13:37: [place] (MULTI-TANA 00 Medical MIN ORAL) Branch ibuprofen 2022-0 Yes 200mg Take 200 Uni vers 200 mg 6-29 mg by ity of tablet 13:37: mouth [place] 00 every 6 Medical (six) Branch hours as needed. Multivitami 2022-0 Yes Take by Uni vers ns with 6-29 mouth. ity of Fluoride 13:37: [place] (MULTI-TANA 00 Medical MIN ORAL) Branch ibuprofen 2022-0 Yes 200mg Take 200 Uni vers 200 mg 6-29 mg by ity of tablet 13:37: mouth [place] 00 every 6 Medical (six) Branch hours as needed. Multivitami 2022-0 Yes Take by Uni vers ns with 6-29 mouth. ity of Fluoride 13:37: [place] (MULTI-TANA 00 Medical MIN ORAL) Branch ibuprofen 2022-0 Yes 200mg Take 200 Uni vers 200 mg 6-29 mg by ity of tablet 13:37: mouth [place] 00 every 6 Medical (six) Branch hours as needed. Multivitami 2022-0 Yes Take by Uni vers ns with 6-29 mouth. ity of Fluoride 13:37: [place] (MULTI-TANA 00 Medical MIN ORAL) Branch ibuprofen 2022-0 Yes 200mg Take 200 Uni vers 200 mg 6-29 mg by ity of tablet 13:37: mouth [place] 00 every 6 Medical (six) Branch hours as needed. Multivitami 2022-0 Yes Take by Uni vers ns with 6-29 mouth. ity of Fluoride 13:37: [place] (MULTI-TANA 00 Medical MIN ORAL) Branch ibuprofen 2022-0 Yes 200mg Take 200 Uni vers 200 mg 6-29 mg by ity of tablet 13:37: mouth [place] 00 every 6 Medical (six) Branch hours as needed. Multivitami 2022-0 Yes Take by Uni vers ns with 6-29 mouth. ity of Fluoride 13:37: [place] (MULTI-TANA 00 Medical MIN ORAL) Branch ibuprofen 2022-0 Yes 200mg Take 200 Uni vers 200 mg 6-29 mg by ity of tablet 13:37: mouth [place] 00 every 6 Medical (six) Branch hours as needed. Multivitami 2022-0 Yes Take by Uni vers ns with 6-29 mouth. ity of Fluoride 13:37: [place] (MULTI-TANA 00 Medical MIN ORAL) Branch ibuprofen 2022-0 Yes 200mg Take 200 Uni vers 200 mg 6-29 mg by ity of tablet 13:37: mouth [place] 00 every 6 Medical (six) Branch hours as needed. Multivitami 2022-0 Yes Take by Uni vers ns with 6-29 mouth. ity of Fluoride 13:37: [place] (MULTI-TANA 00 Medical MIN ORAL) Branch ibuprofen 2022-0 Yes 200mg Take 200 Uni vers 200 mg 6-29 mg by ity of tablet 13:37: mouth [place] 00 every 6 Medical (six) Branch hours as needed. Multivitami 2022-0 Yes Take by Uni vers ns with 6-29 mouth. ity of Fluoride 13:37: [place] (MULTI-TANA 00 Medical MIN ORAL) Branch ibuprofen 2022-0 Yes 200mg Take 200 Uni vers 200 mg 6-29 mg by ity of tablet 13:37: mouth [place] 00 every 6 Medical (six) Branch hours as needed. Multivitami 2022-0 Yes Take by Uni vers ns with 6-29 mouth. ity of Fluoride 13:37: [place] (MULTI-TANA 00 Medical MIN ORAL) Branch ibuprofen 2022-0 Yes 200mg Take 200 Uni vers 200 mg 6-29 mg by ity of tablet 13:37: mouth [place] 00 every 6 Medical (six) Branch hours as needed. Multivitami 2022-0 Yes Take by Uni vers ns with 6-29 mouth. ity of Fluoride 13:37: [place] (MULTI-TANA 00 Medical MIN ORAL) Branch ibuprofen 2022-0 Yes 200mg Take 200 Uni vers 200 mg 6-29 mg by ity of tablet 13:37: mouth [place] 00 every 6 Medical (six) Branch hours as needed. Multivitami 2022-0 Yes Take by Uni vers ns with 6-29 mouth. ity of Fluoride 13:37: [place] (MULTI-TANA 00 Medical MIN ORAL) Branch ibuprofen 2022-0 Yes 200mg Take 200 Uni vers 200 mg 6-29 mg by ity of tablet 13:37: mouth [place] 00 every 6 Medical (six) Branch hours as needed. Multivitami 2022-0 Yes Take by Uni vers ns with 6-29 mouth. ity of Fluoride 13:37: [place] (MULTI-TANA 00 Medical MIN ORAL) Branch ibuprofen 2022-0 Yes 200mg Take 200 Uni vers 200 mg 6-29 mg by ity of tablet 13:37: mouth [place] 00 every 6 Medical (six) Branch hours as needed. Multivitami 2022-0 Yes Take by Uni vers ns with 6-29 mouth. ity of Fluoride 13:37: [place] (MULTI-TANA 00 Medical MIN ORAL) Branch ibuprofen 2022-0 Yes 200mg Take 200 Uni vers 200 mg 6-29 mg by ity of tablet 13:37: mouth [place] 00 every 6 Medical (six) Branch hours as needed. Multivitami 2022-0 Yes Take by Uni vers ns with 6-29 mouth. ity of Fluoride 13:37: [place] (MULTI-TANA 00 Medical MIN ORAL) Branch ibuprofen 2022-0 Yes 200mg Take 200 Uni vers 200 mg 6-29 mg by ity of tablet 13:37: mouth [place] 00 every 6 Medical (six) Branch hours as needed. Multivitami 2021-0 Yes Take by Uni vers ns with 6-29 mouth. ity of Fluoride 13:37: [place] (MULTI-TANA 00 Medical MIN ORAL) Branch ibuprofen 2021-0 Yes 200mg Take 200 Uni vers 200 mg 6-29 mg by ity of tablet 13:37: mouth [place] 00 every 6 Medical (six) Branch hours as needed. Multivitami 2021-0 Yes Take by Uni vers ns with 6-29 mouth. ity of Fluoride 13:37: [place] (MULTI-TANA 00 Medical MIN ORAL) Branch ibuprofen 0 Yes 200mg Take 200 Uni vers 200 mg 6-29 mg by ity of tablet 13:37: mouth [place] 00 every 6 Medical (six) Branch hours as needed. Multivitami 2021-0 Yes Take by Uni vers ns with 6-29 mouth. ity of Fluoride 13:37: [place] (MULTI-TANA 00 Medical MIN ORAL) Branch ibuprofen 0 Yes 200mg Take 200 Uni vers 200 mg 6-29 mg by ity of tablet 13:37: mouth [place] 00 every 6 Medical (six) Branch hours as needed. buPROPion Yes [id number] TAKE ONE Univers SR 9-13 TABLET BY ity of (WELLBUTRIN 00:00: MOUTH [place] SR) 150 mg 00 EVERY Medical SR tablet MORNING Branch buPROPion Yes [id number] TAKE ONE Univers SR 9-13 TABLET BY ity of (WELLBUTRIN 00:00: MOUTH [place] SR) 150 mg 00 EVERY Medical SR tablet MORNING Branch buPROPion Yes [id number] TAKE ONE Univers SR 9-13 TABLET BY ity of (WELLBUTRIN 00:00: MOUTH [place] SR) 150 mg 00 EVERY Medical SR tablet MORNING Branch buPROPion Yes [id number] TAKE ONE Univers SR 9-13 TABLET BY ity of (WELLBUTRIN 00:00: MOUTH [place] SR) 150 mg 00 EVERY Medical SR tablet MORNING Branch buPROPion Yes [id number] TAKE ONE Univers SR 9-13 TABLET BY ity of (WELLBUTRIN 00:00: MOUTH [place] SR) 150 mg 00 EVERY Medical SR tablet MORNING Branch buPROPion Yes [id number] TAKE ONE Univers SR 9-13 TABLET BY ity of (WELLBUTRIN 00:00: MOUTH [place] SR) 150 mg 00 EVERY Medical SR tablet MORNING Branch buPROPion Yes [id number] TAKE ONE Univers SR 9-13 TABLET BY ity of (WELLBUTRIN 00:00: MOUTH [place] SR) 150 mg 00 EVERY Medical SR tablet MORNING Branch buPROPion Yes [id number] TAKE ONE Univers SR 9-13 TABLET BY ity of (WELLBUTRIN 00:00: MOUTH [place] SR) 150 mg 00 EVERY Medical SR tablet MORNING Branch buPROPion Yes [id number] TAKE ONE Univers SR 9-13 TABLET BY ity of (WELLBUTRIN 00:00: MOUTH [place] SR) 150 mg 00 EVERY Medical SR tablet MORNING Branch buPROPion Yes [id number] TAKE ONE Univers SR 9-13 TABLET BY ity of (WELLBUTRIN 00:00: MOUTH [place] SR) 150 mg 00 EVERY Medical SR tablet MORNING Branch buPROPion Yes [id number] TAKE ONE Univers SR 9-13 TABLET BY ity of (WELLBUTRIN 00:00: MOUTH [place] SR) 150 mg 00 EVERY Medical SR tablet MORNING Branch buPROPion Yes [id number] TAKE ONE Univers SR 9-13 TABLET BY ity of (WELLBUTRIN 00:00: MOUTH [place] SR) 150 mg 00 EVERY Medical SR tablet MORNING Branch buPROPion Yes [id number] TAKE ONE Univers SR 9-13 TABLET BY ity of (WELLBUTRIN 00:00: MOUTH [place] SR) 150 mg 00 EVERY Medical SR tablet MORNING Branch buPROPion Yes [id number] TAKE ONE Univers SR 9-13 TABLET BY ity of (WELLBUTRIN 00:00: MOUTH [place] SR) 150 mg 00 EVERY Medical SR tablet MORNING Branch buPROPion Yes [id number] TAKE ONE Univers SR 9-13 TABLET BY ity of (WELLBUTRIN 00:00: MOUTH [place] SR) 150 mg 00 EVERY Medical SR tablet MORNING Branch buPROPion Yes [id number] TAKE ONE Univers SR 9-13 TABLET BY ity of (WELLBUTRIN 00:00: MOUTH [place] SR) 150 mg 00 EVERY Medical SR tablet MORNING Branch buPROPion Yes [id number] TAKE ONE Univers SR 9-13 TABLET BY ity of (WELLBUTRIN 00:00: MOUTH [place] SR) 150 mg 00 EVERY Medical SR tablet MORNING Branch buPROPion Yes [id number] TAKE ONE Univers SR 9-13 TABLET BY ity of (WELLBUTRIN 00:00: MOUTH [place] SR) 150 mg 00 EVERY Medical SR tablet MORNING Branch buPROPion Yes [id number] TAKE ONE Univers SR 9-13 TABLET BY ity of (WELLBUTRIN 00:00: MOUTH [place] SR) 150 mg 00 EVERY Medical SR tablet MORNING Branch buPROPion Yes [id number] TAKE ONE Univers SR 9-13 TABLET BY ity of (WELLBUTRIN 00:00: MOUTH [place] SR) 150 mg 00 EVERY Medical SR tablet MORNING Branch buPROPion Yes [id number] TAKE ONE Univers SR 9-13 TABLET BY ity of (WELLBUTRIN 00:00: MOUTH [place] SR) 150 mg 00 EVERY Medical SR tablet MORNING Branch buPROPion Yes [id number] TAKE ONE Univers SR 9-13 TABLET BY ity of (WELLBUTRIN 00:00: MOUTH [place] SR) 150 mg 00 EVERY Medical SR tablet MORNING Branch buPROPion Yes [id number] TAKE ONE Univers SR 9-13 TABLET BY ity of (WELLBUTRIN 00:00: MOUTH [place] SR) 150 mg 00 EVERY Medical SR tablet MORNING Branch buPROPion Yes [id number] TAKE ONE Univers SR 9-13 TABLET BY ity of (WELLBUTRIN 00:00: MOUTH [place] SR) 150 mg 00 EVERY Medical SR tablet MORNING Branch buPROPion Yes [id number] TAKE ONE Univers SR 9-13 TABLET BY ity of (WELLBUTRIN 00:00: MOUTH [place] SR) 150 mg 00 EVERY Medical SR tablet MORNING Branch buPROPion Yes [id number] TAKE ONE Univers SR 9-13 TABLET BY ity of (WELLBUTRIN 00:00: MOUTH [place] SR) 150 mg 00 EVERY Medical SR tablet MORNING Branch buPROPion 2022- No [id number] TAKE ONE [facility] SR 9-13 06-30 TABLET BY ity of (WELLBUTRIN 00:00: 00:00 MOUTH [place] SR) 150 mg 00 :00 EVERY Medical SR tablet MORNING Branch buPROPion 2022- No [id number] TAKE ONE Univers SR 9-13 06-30 TABLET BY ity of (WELLBUTRIN 00:00: 00:00 MOUTH [place] SR) 150 mg 00 :00 EVERY Medical SR tablet MORNING Branch buPROPion 2022- No [id number] TAKE ONE Univers SR 07-2930 TABLET BY ity of (WELLBUTRIN 00:00: 00:00 MOUTH [place] SR) 150 mg 00 :00 EVERY Medical SR tablet MORNING Branch buPROPion 2022- No [id number] TAKE ONE Univers SR 07-2930 TABLET BY ity of (WELLBUTRIN 00:00: 00:00 MOUTH [place] SR) 150 mg 00 :00 EVERY Medical SR tablet MORNING Branch norethindro Yes [id number] .35mg Take 0.35 Univers ne 8-03 mg by ity of (MICRONOR-2 00:00: mouth [place] 8) 0.35 mg 00 daily. Medical tablet Branch hydrochloro Yes [id number] 25mg Take 1 U nivers thiazide 8-03 tablet by ity of (ESIDRIX) 00:00: mouth [place] 25 mg 00 daily. Medical tablet Branch norethindro Yes [id number] .35mg Take 0.35 Univers ne 8-03 mg by ity of (MICRONOR-2 00:00: mouth [place] 8) 0.35 mg 00 daily. Medical tablet Branch hydrochloro Yes [id number] 25mg Take 1 U nivers thiazide 8-03 tablet by ity of (ESIDRIX) 00:00: mouth [place] 25 mg 00 daily. Medical tablet Branch norethindro Yes [id number] .35mg Take 0.35 Univers ne 8-03 mg by ity of (MICRONOR-2 00:00: mouth [place] 8) 0.35 mg 00 daily. Medical tablet Branch hydrochloro Yes [id number] 25mg Take 1 U nivers thiazide 8-03 tablet by ity of (ESIDRIX) 00:00: mouth [place] 25 mg 00 daily. Medical tablet Branch norethindro Yes [id number] .35mg Take 0.35 Univers ne 8-03 mg by ity of (MICRONOR-2 00:00: mouth [place] 8) 0.35 mg 00 daily. Medical tablet Branch hydrochloro Yes [id number] 25mg Take 1 U nivers thiazide 8-03 tablet by ity of (ESIDRIX) 00:00: mouth [place] 25 mg 00 daily. Medical tablet Branch norethindro Yes [id number] .35mg Take 0.35 Univers ne 8-03 mg by ity of (MICRONOR-2 00:00: mouth [place] 8) 0.35 mg 00 daily. Medical tablet Branch hydrochloro Yes [id number] 25mg Take 1 U nivers thiazide 8-03 tablet by ity of (ESIDRIX) 00:00: mouth [place] 25 mg 00 daily. Medical tablet Branch norethindro Yes [id number] .35mg Take 0.35 Univers ne 8-03 mg by ity of (MICRONOR-2 00:00: mouth [place] 8) 0.35 mg 00 daily. Medical tablet Branch hydrochloro Yes [id number] 25mg Take 1 U nivers thiazide 8-03 tablet by ity of (ESIDRIX) 00:00: mouth [place] 25 mg 00 daily. Medical tablet Branch norethindro Yes [id number] .35mg Take 0.35 Univers ne 8-03 mg by ity of (MICRONOR-2 00:00: mouth [place] 8) 0.35 mg 00 daily. Medical tablet Branch hydrochloro Yes [id number] 25mg Take 1 U nivers thiazide 8-03 tablet by ity of (ESIDRIX) 00:00: mouth [place] 25 mg 00 daily. Medical tablet Branch norethindro Yes [id number] .35mg Take 0.35 Univers ne 8-03 mg by ity of (MICRONOR-2 00:00: mouth [place] 8) 0.35 mg 00 daily. Medical tablet Branch hydrochloro Yes [id number] 25mg Take 1 U nivers thiazide 8-03 tablet by ity of (ESIDRIX) 00:00: mouth [place] 25 mg 00 daily. Medical tablet Branch norethindro Yes [id number] .35mg Take 0.35 Univers ne 8-03 mg by ity of (MICRONOR-2 00:00: mouth [place] 8) 0.35 mg 00 daily. Medical tablet Branch hydrochloro Yes [id number] 25mg Take 1 U nivers thiazide 8-03 tablet by ity of (ESIDRIX) 00:00: mouth [place] 25 mg 00 daily. Medical tablet Branch norethindro Yes [id number] .35mg Take 0.35 Univers ne 8-03 mg by ity of (MICRONOR-2 00:00: mouth [place] 8) 0.35 mg 00 daily. Medical tablet Branch hydrochloro Yes [id number] 25mg Take 1 U nivers thiazide 8-03 tablet by ity of (ESIDRIX) 00:00: mouth [place] 25 mg 00 daily. Medical tablet Branch norethindro Yes [id number] .35mg Take 0.35 Univers ne 8-03 mg by ity of (MICRONOR-2 00:00: mouth [place] 8) 0.35 mg 00 daily. Medical tablet Branch hydrochloro Yes [id number] 25mg Take 1 U nivers thiazide 8-03 tablet by ity of (ESIDRIX) 00:00: mouth [place] 25 mg 00 daily. Medical tablet Branch norethindro Yes [id number] .35mg Take 0.35 Univers ne 8-03 mg by ity of (MICRONOR-2 00:00: mouth [place] 8) 0.35 mg 00 daily. Medical tablet Branch hydrochloro Yes [id number] 25mg Take 1 U nivers thiazide 8-03 tablet by ity of (ESIDRIX) 00:00: mouth [place] 25 mg 00 daily. Medical tablet Branch norethindro Yes [id number] .35mg Take 0.35 Univers ne 8-03 mg by ity of (MICRONOR-2 00:00: mouth [place] 8) 0.35 mg 00 daily. Medical tablet Branch hydrochloro Yes [id number] 25mg Take 1 U nivers thiazide 8-03 tablet by ity of (ESIDRIX) 00:00: mouth [place] 25 mg 00 daily. Medical tablet Branch norethindro Yes [id number] .35mg Take 0.35 Univers ne 8-03 mg by ity of (MICRONOR-2 00:00: mouth [place] 8) 0.35 mg 00 daily. Medical tablet Branch hydrochloro Yes [id number] 25mg Take 1 U nivers thiazide 8-03 tablet by ity of (ESIDRIX) 00:00: mouth [place] 25 mg 00 daily. Medical tablet Branch norethindro Yes [id number] .35mg Take 0.35 Univers ne 8-03 mg by ity of (MICRONOR-2 00:00: mouth [place] 8) 0.35 mg 00 daily. Medical tablet Branch hydrochloro Yes [id number] 25mg Take 1 U nivers thiazide 8-03 tablet by ity of (ESIDRIX) 00:00: mouth [place] 25 mg 00 daily. Medical tablet Branch norethindro Yes [id number] .35mg Take 0.35 Univers ne 8-03 mg by ity of (MICRONOR-2 00:00: mouth [place] 8) 0.35 mg 00 daily. Medical tablet Branch hydrochloro Yes [id number] 25mg Take 1 U nivers thiazide 8-03 tablet by ity of (ESIDRIX) 00:00: mouth [place] 25 mg 00 daily. Medical tablet Branch norethindro Yes [id number] .35mg Take 0.35 Univers ne 8-03 mg by ity of (MICRONOR-2 00:00: mouth [place] 8) 0.35 mg 00 daily. Medical tablet Branch hydrochloro Yes [id number] 25mg Take 1 U nivers thiazide 8-03 tablet by ity of (ESIDRIX) 00:00: mouth [place] 25 mg 00 daily. Medical tablet Branch norethindro Yes [id number] .35mg Take 0.35 Univers ne 8-03 mg by ity of (MICRONOR-2 00:00: mouth [place] 8) 0.35 mg 00 daily. Medical tablet Branch hydrochloro Yes [id number] 25mg Take 1 U nivers thiazide 8-03 tablet by ity of (ESIDRIX) 00:00: mouth [place] 25 mg 00 daily. Medical tablet Branch norethindro Yes [id number] .35mg Take 0.35 Univers ne 8-03 mg by ity of (MICRONOR-2 00:00: mouth [place] 8) 0.35 mg 00 daily. Medical tablet Branch hydrochloro Yes [id number] 25mg Take 1 U nivers thiazide 8-03 tablet by ity of (ESIDRIX) 00:00: mouth [place] 25 mg 00 daily. Medical tablet Branch norethindro Yes [id number] .35mg Take 0.35 Univers ne 8-03 mg by ity of (MICRONOR-2 00:00: mouth [place] 8) 0.35 mg 00 daily. Medical tablet Branch hydrochloro Yes [id number] 25mg Take 1 U nivers thiazide 8-03 tablet by ity of (ESIDRIX) 00:00: mouth [place] 25 mg 00 daily. Medical tablet Branch norethindro Yes [id number] .35mg Take 0.35 Univers ne 8-03 mg by ity of (MICRONOR-2 00:00: mouth [place] 8) 0.35 mg 00 daily. Medical tablet Branch hydrochloro Yes [id number] 25mg Take 1 U nivers thiazide 8-03 tablet by ity of (ESIDRIX) 00:00: mouth [place] 25 mg 00 daily. Medical tablet Branch norethindro Yes [id number] .35mg Take 0.35 Univers ne 8-03 mg by ity of (MICRONOR-2 00:00: mouth [place] 8) 0.35 mg 00 daily. Medical tablet Branch hydrochloro Yes [id number] 25mg Take 1 U nivers thiazide 8-03 tablet by ity of (ESIDRIX) 00:00: mouth [place] 25 mg 00 daily. Medical tablet Branch norethindro Yes [id number] .35mg Take 0.35 Univers ne 8-03 mg by ity of (MICRONOR-2 00:00: mouth [place] 8) 0.35 mg 00 daily. Medical tablet Branch hydrochloro Yes [id number] 25mg Take 1 U nivers thiazide 8-03 tablet by ity of (ESIDRIX) 00:00: mouth [place] 25 mg 00 daily. Medical tablet Branch norethindro Yes [id number] .35mg Take 0.35 Univers ne 8-03 mg by ity of (MICRONOR-2 00:00: mouth [place] 8) 0.35 mg 00 daily. Medical tablet Branch hydrochloro Yes [id number] 25mg Take 1 U nivers thiazide 8-03 tablet by ity of (ESIDRIX) 00:00: mouth [place] 25 mg 00 daily. Medical tablet Branch norethindro Yes [id number] .35mg Take 0.35 Univers ne 8-03 mg by ity of (MICRONOR-2 00:00: mouth [place] 8) 0.35 mg 00 daily. Medical tablet Branch hydrochloro Yes [id number] 25mg Take 1 U nivers thiazide 8-03 tablet by ity of (ESIDRIX) 00:00: mouth [place] 25 mg 00 daily. Medical tablet Branch norethindro Yes [id number] .35mg Take 0.35 Univers ne 8-03 mg by ity of (MICRONOR-2 00:00: mouth [place] 8) 0.35 mg 00 daily. Medical tablet Branch hydrochloro Yes [id number] 25mg Take 1 U nivers thiazide 8-03 tablet by ity of (ESIDRIX) 00:00: mouth [place] 25 mg 00 daily. Medical tablet Branch norethindro 2022- No [id number] .35mg Take 0.35 Univers ne 8-03 06-30 mg by ity of (MICRONOR-2 00:00: 00:00 [place] 8) 0.35 mg 00 :00 daily. Medical tablet Branch hydrochloro 2022- No [id number] 25mg Take 1 Univers thiazide 8-03 06-30 tablet by ity o f (ESIDRIX) 00:00: 00:00 mouth [place] 25 mg 00 :00 daily. Medical tablet Branch norethindro 2022- No [id number] .35mg Take 0.35 Univers ne 8-03 06-30 mg by ity of (MICRONOR-2 00:00: 00:00 [place] 8) 0.35 mg 00 :00 daily. Medical tablet Branch hydrochloro 2022- No [id number] 25mg Take 1 Univers thiazide 8-03 06-30 tablet by ity o f (ESIDRIX) 00:00: 00:00 mouth [place] 25 mg 00 :00 daily. Medical tablet Branch norethindro 2022- No [id number] .35mg Take 0.35 Univers ne 8-03 06-30 mg by ity of (MICRONOR-2 00:00: 00:00 [place] 8) 0.35 mg 00 :00 daily. Medical tablet Branch hydrochloro 2022- No [id number] 25mg Take 1 Univers thiazide 8-03 06-30 tablet by ity o f (ESIDRIX) 00:00: 00:00 mouth [place] 25 mg 00 :00 daily. Medical tablet Branch norethindro 2022- No [id number] .35mg Take 0.35 Univers ne 06-1830 mg by ity of (MICRONOR-2 00:00: 00:00 [place] 8) 0.35 mg 00 :00 daily. Medical tablet Branch hydrochloro 2022- No [id number] 25mg Take 1 Univers thiazide 06-18 tablet by ity o f (ESIDRIX) 00:00: 00:00 mouth [place] 25 mg 00 :00 daily. Medical tablet Branch Vital Signs Vital Name Observation Time Observation Value Comments Source Systolic blood 2023-05-15 13:19:00 140 mm[Hg] Univer sity of pressure [facility] Diastolic blood 2023-05-15 13:19:00 93 mm[Hg] Unive rsity of [facility] Heart rate 2023-05-15 13:19:00 70 /min Universi ty [facility] Body temperature 2023-05-15 13:18:00 35.61 Sonya Univ ersity [facility] Respiratory rate 2023-05-15 13:18:00 18 /min Univ ersity [facility] Body height 2023-05-15 13:18:00 170.2 cm Universi ty [facility] Body weight 2023-05-15 13:18:00 90.674 kg Universi ty [facility] BMI 2023-05-15 13:18:00 31.31 kg/m2 Universi ty [facility] Systolic blood 2023-01-21 19:03:00 146 mm[Hg] Univer sity of [facility] Diastolic blood 2023-01-21 19:03:00 82 mm[Hg] Unive rsity of [facility] Heart rate 2023-01-21 19:03:00 70 /min Universi ty of [facility] Body temperature 2023-01-21 19:03:00 36.17 Sonya Univ ersity [facility] Respiratory rate 2023-01-21 19:03:00 18 /min Univ ersity [facility] Body height 2023-01-21 19:03:00 170.2 cm Universi ty [facility] Body weight 2023-01-21 19:03:00 89.54 kg Universi ty [facility] BMI 2023-01-21 19:03:00 30.92 kg/m2 Universi ty of [facility] Systolic blood 2022-09-25 19:00:00 136 mm[Hg] Vivi Cejaybold - pressure External Diastolic blood 2022-09-25 19:00:00 82 mm[Hg] Rodrick roe Seybold - pressure External Heart rate 2022-09-25 19:00:00 89 /min Vivi Nieves eybold - External Body temperature 2022-09-25 19:00:00 36.72 Sonya Roberta ey Seybold - External Respiratory rate 2022-09-25 19:00:00 14 /min Roberta brothers Seybold - External Body height 2022-09-25 19:00:00 170.2 cm Vivi brothersbold - External Body weight 2022-09-25 19:00:00 90.719 kg Vivi brothersbold - External BMI 2022-09-25 19:00:00 31.32 kg/m2 Vivi brothersbold - External Oxygen saturation in 2022-09-25 19:00:00 99 /min Vivi Banegas - Arterial blood by External Pulse oximetry Systolic blood 2022-08-27 20:26:00 178 mm[Hg] Univer sity of pressure [facility] Diastolic blood 2022-08-27 20:26:00 106 mm[Hg] Unive rsity of [facility] Heart rate 2022-08-27 20:23:00 74 /min Universi ty [facility] Body temperature 2022-08-27 20:23:00 36.17 Sonya [facility] Respiratory rate 2022-08-27 20:23:00 18 /min [facility] Body height 2022-08-27 20:23:00 157.5 cm [facility] Body weight 2022-08-27 20:23:00 88.905 kg [facility]i [facility] BMI 2022-08-27 20:23:00 35.85 kg/m2 Universi ty [facility] Systolic blood 2022-08-27 19:04:00 178 mm[Hg] Univer sity of pressure [facility] Diastolic blood 2022-08-27 19:04:00 106 mm[Hg] Unive rsity of pressure [facility] Heart rate 2022-08-27 18:38:00 74 /min [facility] Body temperature 2022-08-27 18:38:00 36.17 Sonya [facility] Res[facility] rate 2022-08-27 18:38:00 18 /min [facility] Body height 2022-08-27 18:38:00 157.5 cm [facility] Body weight 2022-08-27 18:38:00 89.177 kg [facility] BMI 2022-08-27 18:38:00 35.96 kg/m2 [facility] Procedures Procedure Date / Time Performed Performing Clinician Sourc e ASSIGNMENT OF BENEFITS 2023-05-15 13:00:04 Doctor Unassigned, No [facility] ASSIGNMENT OF BENEFITS 2022-08-27 18:52:28 Doctor Unassigned, No [facility] Encounters Start End Encounter Admission Attending Care Care Encounter Source Date/Time Date/Time Type Type Clinicians Facility Department ID 2023-05-22 2023-05-22 Telephone [place] [id number] Univers 00:00:00 00:00:00 Blu ANGEL 350.1.13.10 it [place] [id number] [address] 2023-05-18 2023-05-18 Telephone [facility] 1.2.840.114 [id number] Univers 00:00:00 00:00:00 Balbina Man [employer] 350.1.13.10 ity of REGIONAL 4.2.7.2.686 [place] as MATERNAL [id number] [facility] & CHILD [address] [place] [address] 2023-05-18 2023-05-18 Telephone [facility] 1.2.840.114 [id number] Univers 00:00:00 00:00:00 Balbina Man STEEL DETAILER 350.1.13.10 ity of REGIONAL 4.2.7.2.686 [place] MATERNAL [id number] [facility] & CHILD [address] [place] [address] 2023-05-15 2023-05-15 Outpatient R WEN [facility] [id number] Univers 08:15:00 09:18:55 BALBINA pablo jared [facility] 2023-05-15 2023-05-15 Office Balbina Carver Magda [facility] 1.2.8 [id number] Univers 08:15:00 09:18:55 Visit GraysonLeif STEEL DETAILER 350.1.13.10 ity of [facility] 4.2.7.2.686 [place] MATERNAL [id number] [facility] ical & CHILD [address] [place] [address] 2023-05-15 2023-05-15 Office Wen [facility] [id number] Univers 08:00:00 09:18:48 Visit Balbina C STEEL DETAILER 350.1.13.10 ity of [facility] 4.2.7.2.686 [place] MATERNAL [id number] [facility] & CHILD [address] [place] [address] 2023-05-15 2023-05-15 Outpatient R KENAN [facility] [id number] Univers 08:15:00 08:15:00 LEIF pablo jared [facility] 2023-05-15 2023-05-15 Orders Doctor JUANA [id number] Univers 00:00:00 00:00:00 Only Unassigned, LYLE 350.1.13.10 ity of [place] [facility] 4.2.7.2.686 [place] as [phone] [address] 2023-04-26 2023-04-26 Outpatient VIVI AQUINO [id number] Vivi 00:00:00 00:00:00 BEBO renee 2023-04-09 2023-04-09 Outpatient VIVI AQUINO [id number] Vivi 00:00:00 00:00:00 BEBO renee 2023-02-20 2023-02-20 Outpatient GC_[facility]Brow PRIV PRIV [id number] [facility] 00:00:00 00:00:00 n_J [id number] Medica l 2023-02-17 2023-02-17 Outpatient VIVI MARTINEZ [id number] Vivi 00:00:00 00:00:00 FRANK renee 2023-01-21 2023-01-21 [facility] 1.2.840.114 [id number] Univers 06:58:42 23:59:00 Encounter Pauly A SPECIALTY 350.1.13.10 it[place] [id number] Id deidre QUISPE 5 [facility] 2023-01-21 2023-01-21 Outpatient R WEN [facility] [id number] [facility] 12:45:00 13:28:04 BALBINA coleman [facility] 2023-01-21 2023-01-21 Office [facility] [id number] [facility] 12:45:00 13:28:04 Visit Balbina Man STEEL DETAILER 350.1.13.10 ity of [facility] 4.2.7.2.686 [place] MATERNAL [id number] Med ical & CHILD [address] [place] [address] 2023-01-14 2023-01-14 Outpatient VIVI MARTINEZ [id number] Vivi 00:00:00 00:00:00 FRANK renee 2022-12-11 2022-12-11 Outpatient VIVI AQUINO [id number] Vivi 00:00:00 00:00:00 BEBO renee 2022-12-11 2022-12-11 Outpatient VIVI MARTINEZ [id number] Vivi 00:00:00 00:00:00 FRANK renee 2022-12-02 2022-12-02 [facility] 1.2.840.114 [id number] Univers 00:00:00 00:00:00 Management Pauly A STEEL DETAILER 350.1.13.10 ity of REGIONAL 4.2.7.2.686 [place] MATERNAL [id number] Med ical & CHILD [address] [place] [address] 2022-11-24 2022-11-24 [facility] 1.2.840.114 [id number] Univers 07:09:38 23:59:00 Encounter Leif R SPECIALTY 350.1.13.10 ity of [facility] 4.2.7.2.686 [place] [facility] AT [id number] Id deidre QUISPE 815 [facility] 2022-11-24 2022-11-24 Outpatient R GRAYSON, [facility] [id number] Univers 07:09:37 23:59:00 LEIF ity o f [facility] 2022-11-24 2022-11-24 Telephone [facility] 1.2.840.114 [id number] Univers 00:00:00 00:00:00 Balbina C STEEL DETAILER 350.1.13.10 ity of REGIONAL 4.2.7.2.686 [place] MATERNAL [id number] Med ical & CHILD [address] [place] [address] 2022-10-22 2022-10-22 Telephone [facility] 1.2.840.114 [id number] Univers 00:00:00 00:00:00 Balbina Man STEEL DETAILER 350.1.13.10 ity of REGIONAL 4.2.7.2.686 [place] MATERNAL [id number] Med ical & CHILD [address] [place] [address] 2022-10-15 2022-10-15 Outpatient VIVI AQUINO [id number] Vivi 00:00:00 00:00:00 BEBO Seybol víctor 2022-10-14 2022-10-14 Outpatient VIVI AQUINO [id number] Vivi 00:00:00 00:00:00 BEBO Seybol d 2022-09-26 2022-09-26 Outpatient VIVI AQUINO [id number] Vivi 00:00:00 00:00:00 BEBO Seybol d 2022-09-25 2022-09-25 Outpatient VIVI AQUINO [id number] Vivi 13:00:00 13:00:00 BEBO Seybol d 2022-09-24 2022-09-24 Outpatient VIVI MARTINEZ [id number] Vivi 00:00:00 00:00:00 FRANK Seybol d 2022-09-23 2022-09-23 Outpatient HUNDL, VIVI PONCE [id number] Vivi 00:00:00 00:00:00 BEBO Seybol d 2022-09-23 2022-09-23 Outpatient MAREKL VIVI PONCE [id number] Vivi 00:00:00 00:00:00 BEBO Seybol d 2022-09-23 2022-09-23 Outpatient PREZAS, VIVI PONCE [id number] Vivi 00:00:00 00:00:00 FRANK Seybol d 2022-09-17 2022-09-17 Outpatient HUNDL, VIVI PONCE [id number] Vivi 00:00:00 00:00:00 BEBO Seybol d 2022-09-17 2022-09-17 Outpatient HUNDL, VIVI PONCE [id number] Vivi 00:00:00 00:00:00 BEBO Seybol d 2022-09-09 2022-09-09 Outpatient MAREKL, VIVI PONCE [id number] Vivi 00:00:00 00:00:00 BEBO Seybol d 2022-09-09 2022-09-09 Outpatient HUNDL, VIVI PONCE [id number] Vivi 00:00:00 00:00:00 BEBO Seybol d 2022-09-02 2022-09-02 Outpatient HUNDL, VIVI PONCE [id number] Vivi 00:00:00 00:00:00 BEBO Seybol d 2022-09-01 2022-09-01 Outpatient LAB90 VIVI PONCE [id number] Vivi 08:40:00 08:40:00 Seybol d 2022-09-01 2022-09-01 Outpatient HUNDL, VIVI PONCE [id number] Vivi 00:00:00 00:00:00 BEBO Seybol d 2022-08-29 2022-08-29 Kersey GINA [place] [id number] Univers 00:00:00 00:00:00 Leif Olsen STEEL DETAILER 350.1.13.10 [facility] 4.2.7.2.686 [place] MATERNAL [id number] Med ical & CHILD [address] [place] [address] 2022-08-28 2022-08-28 Outpatient VIVI AQUINO VIVI [id number] Vivi 14:30:00 14:30:00 BEBO renee 2022-08-28 2022-08-28 Outpatient VIVI AQUINO VIVI [id number] Vivi 00:00:00 00:00:00 BEBO renee 2022-08-27 2022-08-27 Office [facility] 1.2.840.114 [id number] Univers 15:15:00 15:15:00 Visit [facility] Raúl STEEL DETAILER 350.1.13.10 ity of [facility] 4.2.7.2.686 [place] MATERNAL [id number] [address] 2022-08-27 2022-08-27 Outpatient R [facility] [id number] Univers 15:15:00 14:37:45 [facility] tresa o [facility] 2022-08-27 2022-08-27 Outpatient R [facility] [id number] Univers 13:15:00 14:37:32 [facility] tresa o [facility] 2022-08-27 2022-08-27 Office [facility] 1.2.840.114 [id number] Univers 13:15:00 14:37:32 [facility] Raúl STEEL DETAILER 350.1.13.10 ity of [facility] 4.2.7.2.686 [place] MATERNAL [id number] [address] 2022-08-27 2022-08-27 Orders Doctor JUANA 1.2.840.114 [id number] Univers 00:00:00 00:00:00 Only Unassigned, LYLE 350.1.13.10 ity of [place] [facility] 4.2.7.2.686 [place] as [id number] [address] 2022-08-11 2022-08-11 Telephone Pcp, JR 1.2.840.114 [id number] Univers 00:00:00 00:00:00 Patient Y HEALTH 350.1.13.10 i ty of Does Not [facility] 4.2.7.2.686 [place] Have A [id number] [address] 2022-08-11 2022-08-11 Refill [facility] 1.2.840.114 [id number] Univers 00:00:00 00:00:00 Blu ORTIZ 350.1.13.10 it [place] [id number] [address] 2022-06-13 2022-06-13 Telephone [facility] 1.2.840.11 [id number] Univers 00:00:00 00:00:00 Gitabrennen ORTIZ 350.1.13.10 it [place] [id number] [address] 2022-06-13 2022-06-13 Telephone [facility] [id number] [id number] Univers 00:00:00 00:00:00 Patient STEEL DETAILER 350.1.13.10 it y of Does Not [facility] [place].7.2.[place]NAL [id number] Med ical & CHILD 107 [facility] 2022-06-11 2022-06-11 Case [facility] 1.2.840.114 [id number] Univers 00:00:00 00:00:00 Management Blu ORTIZ 350.1.13.10 it[place] [id number] [address] 2022-06-09 2022-06-09 Telephone [facility] 1.2.840.11 [id number] Univers 00:00:00 00:00:00 Gitabrennen ORTIZ 350.1.13.10 it y [place] [id number] [address] 2022-05-22 2022-05-22 Telephone [facility] 1.2.840.11 [id number] Univers 00:00:00 00:00:00 Blu ORTIZ 350.1.13.10 it y of [place] [id number] [facility] [address] 2022-05-14 2022-05-14 Outpatient R [facility] [id number] [facility] 13:00:00 14:10:35 BLU RICHARDSON ity [facility] 2022-05-14 2022-05-14 Office Dylan [facility] 1.2.840.114 [id number] [facility] 13:00:00 14:10:35 Visit Blu ORTIZ 350.1.13.10 it y of WOMEN'S 4.2.7.2.686 [facility] [id number] [place] [address] [address] 2022-05-14 2022-05-14 Orders Doctor ARIAS 1.2.840.114 [id number] Univers 00:00:00 00:00:00 Only Unassigned, LYLE 350.1.13.10 ity of [place] [facility] 4.2.7.2.686 [place] as [id number] [place] [address] [address] 2021-08-14 2021-08-14 Outpatient [facility] PRIV PRIV [id number] [facility] 00:00:00 00:00:00 n_J [id number] Medica l Results This patient has no known results.
--- NOTE | 2023-05-29 14:15 | RAD REPORT ---
[facility] - [facility]/2023 2:00 pm CLINICAL HISTORY: ABD PAIN COMPARISON: No comparisons TECHNIQUE: CT of the abdomen and pelvis was performed without contrast. All CT scans are performed using dose optimization technique as appropriate and may include automated exposure control or mA/KV adjustment according to patient size. FINDINGS: Lower chest: No acute abnormality. Small hiatal hernia. Liver: No acute abnormality or suspicious lesions. Biliary: No biliary ductal dilatation. Stomach: No significant focal abnormality. Duodenum: No significant focal abnormality. Pancreas: No significant abnormality. Spleen: No significant abnormality. Adrenal: No suspicious lesions. Kidney/ureter: No hydronephrosis. No renal calculi. Retroperitoneum: No retroperitoneal adenopathy. Vascular: No aneurysm. Atherosclerosis. Bowel: No significant focal abnormality. Diverticulosis without diverticulitis. Peritoneum: No ascites or free air. Tiny fat Bladder: Grossly unremarkable. Reproductive: No adnexal masses. Bones: No acute fracture. Other: n/a IMPRESSION: No acute intra-abdominal or pelvic finding. No urinary tract calculi .
[2023-05-29 15:19] LABS: Specific Gravity 1.006 (1.005-1.030); Urine Bacteria <20 /HPF (<20); Urine Bilirubin NEGATIVE (Negative); Urine Blood Negative (Negative); Urine Clarity Turbid (Clear); Urine Color Colorless (Yellow); Urine Glucose NEGATIVE (Negative); Urine Protein NEGATIVE (Negative); Urine RBC None Seen /HPF (None Seen); Urine Urobilinogen Normal (Normal)
--- NOTE | 2023-05-29 15:40 | EDPHYS ---
Physician Documentation [facility] Name: Ladi Matta Age: 52 yrs Sex: Female : 1970 Arrival Date: 05/29/2023 Time: 13:22 Bed 11 Private MD: Leslie Irizarry ED Physician René Kaur HPI: 05/29 13:53 This 52 yrs old Female presents to ER via Ambulatory with complaints of Abdominal Pain. kb 13:53 The patient presents with abdominal pain right lower quadrant. Onset: The kb symptoms/episode began/occurred 1 hour(s) ago. The symptoms do not radiate. Associated signs and symptoms: none. The symptoms are described as constant. Modifying factors: The symptoms are alleviated by nothing, the symptoms are aggravated by nothing. Severity of pain: At its worst the pain was moderate in the emergency department the pain has improved. The patient has experienced a previous episode. The patient has not recently seen a physician. Pt reports pain to right side of abd when she was sitting to have a BM. States the pain went away after she stood up. States she felt like something moved across her abd. States she has had similar pain intermittently since pulling a muscle in 2020, but she thought that was healed. States it feels like it catches and cramps up when she moves in certain positions. . Historical: - Allergies: 13:31 No Known Allergies; aa5 - PMHx: 13:31 Hypertensive disorder; aa5 - PSHx: 13:31 knee sx; aa5 - Immunization history:: Adult Immunizations unknown. - Social history:: Smoking status: Reported history of juuling and/or vaping. ROS: 13:53 Constitutional: Negative for fever, chills, and weight loss. kb 13:53 Abdomen/GI: Positive for abdominal pain, Negative for nausea, vomiting, and diarrhea. 13:53 All other systems are negative. Exam: 13:53 Constitutional: This is a well developed, well nourished patient who is awake, alert, kb and in no acute distress. Head/Face: Normocephalic, atraumatic. ENT: Moist Mucous membranes Cardiovascular: Regular rate and rhythm with a normal S1 and S2. No gallops, murmurs, or rubs. No pulse deficits. Respiratory: Respirations even and unlabored. No increased work of breathing. Talking in full sentences Abdomen/GI: Soft, non-tender. No distention Skin: Warm, dry with normal turgor. Normal color. MS/ Extremity: Pulses equal, no cyanosis. Neurovascular intact. Full, normal range of motion. Neuro: Awake and alert, GCS 15, oriented to person, place, time, and situation. Moves all extremities. Normal gait. Vital Signs: 13:31 BP 155 / 105; Pulse 75; Resp 18 S; Temp 98.5(TE); Pulse Ox 99% on R/A; Weight 90.26 kg aa5 (R); Height 5 ft. 7 in. (R); 15:35 BP 152 / 97; Pulse 62; Resp 17; Pulse Ox 98% on R/A; Pain 0/10; ss 13:31 Body Mass Index 31.17 (90.26 kg, 170.18 cm) aa5 15:35 Pain Scale: Adult ss MDM: 13:29 Patient medically screened. kb 13:53 Data reviewed: vital signs, nurses notes. kb 15:36 Differential diagnosis: non-specific abd pain, cholelithiasis, cholecystitis, muscle kb strain. Test considered but Not performed: Labs: cbc, cmp considered, but pt has no n/v/d/f, is nontoxic in appearance, afebrile. 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 Counseling: I had a detailed discussion with the patient and/or guardian regarding: the historical points, exam findings, and any diagnostic results supporting the discharge/admit diagnosis, lab results, radiology results, the need for outpatient follow up, a family practitioner, to return to the emergency department if symptoms worsen or persist or if there are any questions or concerns that arise at home. 15:39 Test considered but Not performed: Ultrasound US abd considered, but pt and kb state they will have that done later if pain returns. . ED course: Pt has no abd tenderness, afebrile, nontoxic in appearance. . 05/29 14:26 Order name: Urinalysis w/ reflexes; Complete Time: 15:21 kb 05/29 13:37 Order name: CT Stone Protocol; Complete Time: 14:25 kb Administered Medications: No medications were administered Disposition: 16:02 Co-signature as Attending Physician, René Kaur MD I reviewed the patient's care rt provided by the Advanced Practice Provider and agree with the diagnosis and treatment plan. Disposition Summary: 05/29/23 15:39 Discharge Ordered Location: Home kb Condition: Stable kb Diagnosis - Abdominal pain, Generalized kb Followup: kb - With: Emergency Department - When: As needed - Reason: Worsening of condition Followup: kb - With: Private Physician - When: 2 - 3 days - Reason: Recheck today's complaints, Continuance of care, Re-evaluation by your physician Discharge Instructions: - Discharge Summary Sheet kb - Abdominal Pain, Adult, [id number] kb Forms: - Medication Reconciliation Form kb - Thank You Letter kb - Antibiotic Education kb - Prescription Opioid Use kb - Patient Portal Instructions kb Prescriptions: - Cyclobenzaprine 10 mg Oral Tablet - take 1 tablet by ORAL route every 8 hours As needed; 21 tablet; Refills: 0, kb Product Selection Permitted - Diclofenac Sodium 75 mg Oral tablet,delayed release (DR/EC) - take 1 tablet by ORAL route 2 times per day As needed; 30 tablet; Refills: 0, kb Product Selection Permitted Signatures: Dispatcher [employer] EDShelli Gauthier, SALEEM-C SALEEM-Mary De La Torre, RN RN aa5 René Kaur MD MD rt Corrections: (The following items were deleted from the chart) 15:38 13:53 Pt reports pain to right side of abd when she was sitting to have a BM. States kb the pain went away after she stood up. States she felt like something moved across her abd . kb
--- NOTE | 2023-05-29 15:40 | ER ---
Nurse's Notes [facility] Name: Ladi Matta Age: 52 yrs Sex: Female : 1970 Arrival Date: 05/29/2023 Time: 13:22 Bed 11 Private MD: Leslie Irizarry Diagnosis: Abdominal pain, Generalized Presentation: 05/29 13:30 Chief complaint: Patient states: RLQ pain that was aggravated today by attempting to aa5 have a BM. Denies nausea/vomiting/diarrhea. 13:31 Coronavirus screen: At this time, the client does not indicate any symptoms associated aa5 with coronavirus-19. Ebola Screen: Patient denies travel to an Ebola-affected area in the 21 days before illness onset. Initial Sepsis Screen: Does the patient meet any 2 criteria? No. Patient's initial sepsis screen is negative. Does the patient have a suspected source of infection? No. Patient's initial sepsis screen is negative. Risk Assessment: Do you want to hurt yourself or someone else? Patient reports no desire to harm self or others. Onset of symptoms was May 29, 2023. 13:31 Acuity: IRAM 3 aa5 13:31 Method Of Arrival: Ambulatory aa5 Historical: - Allergies: 13:31 No Known Allergies; aa5 - PMHx: 13:31 Hypertensive disorder; aa5 - PSHx: 13:31 knee sx; aa5 - Immunization history:: Adult Immunizations unknown. - Social history:: Smoking status: Reported history of juuling and/or vaping. Screenin:44 [facility] ED Fall Risk Assessment (Adult) History of falling in the last 3 months, ss including since admission No falls in past 3 months (0 pts). Abuse screen: Denies threats or abuse. Denies injuries from another. Nutritional screening: No deficits noted. Tuberculosis screening: Never had TB. Assessment: 13:36 General: Appears in no apparent distress. comfortable, Behavior is calm, cooperative. ss Neuro: Level of Consciousness is awake, alert. Respiratory: Airway is patent Respiratory effort is even, unlabored, Respiratory pattern is regular, symmetrical. GI: Reports upper abdominal pain, Patient currently denies diarrhea, nausea, vomiting. Derm: Skin is pink, warm \T\ dry. normal. 14:43 Reassessment: Patient appears in no apparent distress at this time. Patient and/or ss family updated on plan of care and expected duration. Pain level reassessed. Patient is alert, oriented x 3, equal unlabored respirations, skin warm/dry/pink. 15:34 Reassessment: Patient appears in no apparent distress at this time. MARLI Marques at ss bedside discussing results and plan of care with patient. Vital Signs: 13:31 BP 155 / 105; Pulse 75; Resp 18 S; Temp 98.5(TE); Pulse Ox 99% on R/A; Weight 90.26 kg aa5 (R); Height 5 ft. 7 in. (R); 15:35 BP 152 / 97; Pulse 62; Resp 17; Pulse Ox 98% on R/A; Pain 0/10; ss 13:31 Body Mass Index 31.17 (90.26 kg, 170.18 cm) aa5 15:35 Pain Scale: Adult ss ED Course: 13:24 Patient arrived in ED. mr 13:24 Leslie Irizarry is Private Physician. mr 13:29 Shelli Epstein FNP-C is [facility]. kb 13:29 René Kaur MD is Attending Physician. kb 13:30 Arm band placed on. aa5 13:32 Triage completed. aa5 14:01 CT Stone Protocol In Process Unspecified. EDMS 14:22 Susan Hester, BROOKS is Primary Nurse. ss 14:44 Patient has correct armband on for positive identification. ss 15:37 No provider procedures requiring assistance completed. Patient did not have IV access ss during this emergency room visit. Administered Medications: No medications were administered Medication: 14:44 VIS not applicable for this client. ss Outcome: 15:37 Discharged to home ambulatory, with significant other. ss 15:37 Condition: good 15:37 Discharge instructions given to patient, significant other, Instructed on discharge instructions, follow up and referral plans. medication usage, Demonstrated understanding of instructions, follow-up care, medications, Prescriptions given X 1. 15:39 Discharge ordered by MD. kb 15:49 Patient left the ED. ss Signatures: Dispatcher [employer] EDMS Shelli Epstein FNP-C FNP-Ckb SeanRhea mr HillMary RN RN aa5 Susan Hester, BROOKS RN ss Corrections: (The following items were deleted from the chart) 13:32 13:30 Chief complaint: Patient states: RLQ pain aa5 aa5 13:32 13:30 Chief complaint: Patient states: RLQ pain that was aggravated today by attempting aa5 BM. aa5 13:33 13:30 Chief complaint: Patient states: RLQ pain that was aggravated today by attempting aa5 to have a BM. aa5 13:36 13:31 BP 155 / 105; Pulse 75bpm; Resp 18bpm; Spontaneous; Pulse Ox 99% RA; Temp 98.5F aa5 Temporal; aa5
[2023-05-29 15:54] VITALS: TEMP 98.5
[2023-05-29 15:55] VITALS: BP 152/97; O2SAT 98
== END 2023-05-29 15:49 | disposition home or self-care (01) ==
LOC: ER 13:22
DX: R10.84 Generalized abdominal pain (principal)
CPT/HCPCS: 74176; 76377; 81001; 99283